=== PATIENT | female | born 1975 | race Caucasian/White ===

== ENCOUNTER → 2020-08-18 07:31 | Outpatient (CLI) | payer SELFPAY ==
--- NOTE | 2020-08-18 07:32 | CT_ITS ---
PROCEDURE: CT HEART W CALCIUM SCORE CLINICAL HISTORY: chest pain COMPARISON: No exams were available for comparison TECHNIQUE: Axial images obtained with sagittal and coronal reformats. All CT scans at the facility use one or more dose reduction, viz: automated exposure control, ma/kV adjustment per patient size (including targeted exams where dose is matched to indication, i.e. head), or iterative reconstruction technique. FINDINGS: Coronary artery calcium score is 2. Minimal calcific plaque burden with low cardiovascular disease risk IMPRESSION: Minimal calcific plaque burden with low cardiovascular disease risk Dictated by: Cristopher Dash MD 08/18/2020 19:28 Cristopher Dash MD in [place] 08/18/2020 19:28
== END ==
PROVIDERS: PCP Emergency Medicine; Visit Provider Internal Medicine Cardiovascular Disease
DX: Z13.6 Encounter for screening for cardiovascular disorders (principal); R06.00 Dyspnea, unspecified; R07.89 Other chest pain; E78.5 Hyperlipidemia, unspecified; G47.33 Obstructive sleep apnea (adult) (pediatric); K21.9 Gastro-esophageal reflux disease without esophagitis; R06.83 Snoring; R09.89 Other specified symptoms and signs involving the circulatory and respiratory systems
CPT/HCPCS: 75571

== ENCOUNTER → 2020-08-18 08:01 | Outpatient (CLI) | payer MEDICAID, SELFPAY ==
--- NOTE | 2020-08-18 08:02 | CA_ITS ---
APPROVED REPORT EXAM: Comprehensive 2D, Doppler, and color-flow Echocardiogram Stained Glass Installer: Verna Pang RT(R) Ht: 5 ft 0 in Wt: 224lbs BSA: 1.96 BP: 135/65 mmHg Indications: CP, GERD, XI, smoker, SOA, hyperlipidemia 2D Dimensions LVOT 1.97 cm (M/F) 1.5-2.5 M-Mode Dimensions RVDd 2.29 cm (0.9-2.6) LA Diam 3.31 cm (1.9-4.0) LVDd 4.57 cm (3.5-5.7) Ao Diam 2.54 cm (2.0-3.7) LVDs 3.21 cm (3.5-5.7) IVSd 0.72 cm (0.6-1.1) PWd 1.16 cm (0.6-1.1) EF (Teich) 56.90% FS 29.80% EDV (Teich) 95.90 mL ESV (Teich) 41.30 mL LV Diastology E Decel Time 173.00 (160-240 msec) E/A Ratio 1.1 MED E' 11.60 (< 7 cm/sec) E'/MED E' Ratio 10.09 (>14) LAT E' 13.20 (<10 cm/sec) E/LAT E' Ratio 8.86 (>14) Mitral Valve MV E Max Jarad. 117.00 (40-130 cm/s) MV A Velocity 109.00 (40-130 cm/s) E/A Ratio 1.08 MV Decel. Time 173.00 (160-240 ms) MV PHT 51.00 ms Left Ventricle Left atrium is mildly enlarged, left ventricle is normal size, left ventricle wall thickness is upper limit of normal, visually estimated ejection fraction 55% with no regional wall motion abnormality. Diastolic parameters are inconclusive. Right Ventricle Right atrium and right ventricle are normal size and contractility. Aortic Valve Aortic valve is minimally thickened and fibrosed, there is no aortic stenosis or aortic insufficiency. Mitral Valve Mitral valve is grossly normal, there is mild mitral regurgitation. Tricuspid Valve Tricuspid valve grossly normal, there is mild tricuspid regurgitation, tricuspid regurgitation jet velocity is inadequate for calculation of the right ventricular systolic pressure. Pulmonic Valve Pulmonic valve is poorly visualized. Great Vessels Aortic root is normal size. Pericardium No significant pericardial effusion noted. Conclusion 1. Mildly enlarged left atrium, normal left ventricular size, mild concentric left ventricular hypertrophy, visually estimated ejection fraction 55% with no regional wall motion abnormality, diastolic parameters are inconclusive. 2. Mild mitral and tricuspid regurgitation. 3. No significant pericardial effusion noted. Electronically signed by : Francis Wright, 08/19/2020 05:32:51
--- NOTE | 2020-08-18 08:02 | CA_ITS ---
APPROVED REPORT Supervisor Chassis Assembly: BRUNO Laterality: Bilateral Indications: bilateral carotid bruits Risk Factors Hyperlipidemia Smoking Doppler Spectral Velocity Analysis ECA (R) 142.20/20.30 cm/s ECA (L) 176.80/14.10 cm/s dICA (R) 116.60/35.30 cm/s dICA (L) 117.90/20.50 cm/s Diana (R) 74.50/18.60 cm/s Diana (L) 91.00/24.30 cm/s pICA (R) 64.20/16.70 cm/s pICA (L) 91.00/19.20 cm/s dCCA (R) 96.20/22.50 cm/s dCCA (L) 106.90/20.30 cm/s pCCA (R) 120.80/24.60 cm/s pCCA (L) 113.30/18.20 cm/s Vert (R) 80.20/18.20 cm/s Vert (L) 84.60/15.40 cm/s ICA/CCA 1.21 ICA/CCA 1.10 Findings Duplex evaluation demonstrates stenosis of the left proximal internal carotid artery <20% with PSV <140 cm/sec, EDV <100 cm/sec, and IC/CC Ratio <4.0. Duplex evaluation demonstrates stenosis of the right proximal internal carotid artery <20% with PSV <140 cm/sec, EDV <100 cm/sec, and IC/CC Ratio <4.0. Conclusion Duplex evaluation demonstrates stenosis of the left proximal internal carotid artery <20% with PSV <140 cm/sec, EDV <100 cm/sec, and IC/CC Ratio <4.0. Duplex evaluation demonstrates stenosis of the right proximal internal carotid artery <20% with PSV <140 cm/sec, EDV <100 cm/sec, and IC/CC Ratio <4.0. Electronically signed by : Cristopher Dash MD 08/18/2020 19:25:05
[2020-08-18 12:10] VITALS: PULSE 94; PULSE 98
== END ==
PROVIDERS: PCP Emergency Medicine; Visit Provider Internal Medicine Cardiovascular Disease
DX: R06.00 Dyspnea, unspecified (principal); R09.89 Other specified symptoms and signs involving the circulatory and respiratory systems; E78.5 Hyperlipidemia, unspecified; G47.33 Obstructive sleep apnea (adult) (pediatric); R06.83 Snoring; R07.89 Other chest pain
CPT/HCPCS: 93306; 93880; 94060; 94618; 94640; 94726; 94729